=== PATIENT | female | born 1990 | race Caucasian/White ===

== ENCOUNTER 2017-02-13 16:13 | Emergency (ER) | payer OTHER ==
[~2017-02-13] VITALS: Ht 175.3 cm; Wt 114.4 kg
[~2017-02-13 16:13] MED LIST: ATARAX,VISTARIL25 MG PO; FLEXERIL10 MG PO; HYDROCODON-ACE1 EAC7 PO; Imitrex PO; LORTAB 5-325 M1 EACH PO; MACROBID100 MG PO; MILLIPRED DP5 MG PO; MOTRIN800 MG PO; NAPROSYN500 MG PO; NO HOME MEDS; NOHOMEMEDS; NORCO 5/3251 TABLET PO; PERCOCET 5/31 TABLET PO; Prefera-OB Plus DHA PO; SPRINTEC1 EACH PO; ULTRAM50 MG PO; ZANTAC150 MG PO; ZITHROMAX250 MG PO; ZOFRAN4 MG PO; Zantac PO; no home med
[2017-02-13 16:40] LABS: HEMATOCRIT 39.6 % (36.0-46.0); MCHC 33.6 G/DL (30.0-36.0); MCV 92.3 FL (83-99); MEAN PLAT.VOLUME 9.6 uM^3 (9.5-12.4); PLATELET COUNT 243 K/uL (156-360); RBC DIS.WIDTH-CV 12.9 % (11.8-14.6); RBC DIS.WIDTH-SD 43.4 % (39-53); RED BLOOD COUNT 4.29 M/uL (3.80-5.20); WHITE BLOOD COUNT 12.4 K/uL (4.1-10.2)
[2017-02-13 16:49] LABS: CHLORIDE 108 mEq/L (99-109); POTASSIUM 3.8 mEq/L (3.7-5.4); SODIUM 138 mEq/L (136-147)
[2017-02-13 16:51] LABS: GLUCOSE 104 mg/dL (70-99)
[2017-02-13 16:52] LABS: ANION GAP 9 MEQ/L (2-14)
[2017-02-13 16:53] LABS: TOTAL BILIRUBIN 0.5 mg/dL (0.0-1.0)
[2017-02-13 16:55] LABS: ALKALINE PHOSPHATASE 52 IU/L (3-129); GFR ESTIMATE (CALCULATED) > 59 mL/min/
[2017-02-13 16:56] LABS: UREA NITROGEN (BUN) 6 mg/dL (9-23)
[2017-02-13 17:11] LABS: ADD MIUA? YES; BILIRUBIN NEGATIVE; BLOOD NEGATIVE; COLOR YELLOW ((YELLOW)); GLUCOSE (STRIP) NEGATIVE; KETONES NEGATIVE; LEUKOCYTES NEGATIVE; NITRITE NEGATIVE; PROTEIN (STRIP) NEGATIVE; SPECIFIC GRAVITY 1.013 (1.000-1.030); UROBILINOGEN 0.2 MG/DL (0.2-1.0)
[2017-02-13 17:22] LABS: QUANTITATIVE HCG 44363.6 MIU/ML
[2017-02-13 17:25] LABS: BACTERIA RARE /HPF; EPITHELIAL CELLS RARE /HPF; MUCUS TRACE /LPF; RED BLOOD CELLS 0-5 /HPF (0-5); UCUL ADDED? NO; UNCLASSIFIED CRYSTALS 1+ /HPF; WHITE BLOOD CELLS 0-5 /HPF (0-5)
[2017-02-13 19:35] VITALS: BP 131/75
== END 2017-02-13 19:37 | disposition home or self-care (01) ==
LOC: EME 16:13
DX: O43.891 Other placental disorders, first trimester (principal); O20.0 Threatened abortion; O26.891 Other specified pregnancy related conditions, first trimester; R10.2 Pelvic and perineal pain; F17.200 Nicotine dependence, unspecified, uncomplicated; Z3A.11 11 weeks gestation of pregnancy
CPT/HCPCS: 76801; 80053; 81003; 84702; 85027; 99281; 99284

== ENCOUNTER 2017-08-20 01:45 | Inpatient (IN) | payer OTHER ==
[2017-08-20] VITALS (33 sets, daily range): BP systolic 107–137; BP diastolic 58–88
[~2017-08-20] VITALS: Ht 175.3 cm; Wt 118.4 kg
[2017-08-20 03:10] LABS: EOSINOPHIL (%) 1.4 % (0-5); EOSINOPHIL COUNT 0.2 K/uL (0-0.3); HEMATOCRIT 36.8 % (36.0-46.0); IMMATURE GRANULOCYTE COUNT 0.2 K/uL; INSTRUMENT ABS NEUTROPHIL CT 11.2 K/uL; LYMPHOCYTE COUNT 2.9 K/uL (1.0-2.8); MCHC 33.2 G/DL (30.0-36.0); MCV 93.6 FL (83-99); MEAN PLAT.VOLUME 10.1 uM^3 (9.5-12.4); MONOCYTE (%) 6.5 % (3-12); NEUTROPHIL (%) 72.4 % (45-76); NEUTROPHIL COUNT 11.2 K/uL (1.8-6.4); PLATELET COUNT 230 K/uL (156-360); RBC DIS.WIDTH-CV 13.9 % (11.8-14.6); RBC DIS.WIDTH-SD 48.2 % (39-53); RED BLOOD COUNT 3.93 M/uL (3.80-5.20); WHITE BLOOD COUNT 15.5 K/uL (4.1-10.2)
[2017-08-20] MEDS ORDERED: PRENATAL ONE T1 EACH PO (03:20)
[2017-08-20] MEDS ORDERED: RANITIDINE HCL150 M1 PO (03:21)
[2017-08-20] MEDS ORDERED: VENTOLIN HFA18 GM IH (03:21)
[2017-08-20] MEDS ORDERED: TYLENOL EXTRA500 MG PO (03:22)
[2017-08-20 04:03] LABS: THC CANNABINOIDS PRESUMPTIVE POSITIVE (50 ng/mL)
[2017-08-20 04:04] LABS: ADD MEDTOX COMMENT Y; AMPHETAMINE NEGATIVE (500 ng/mL); BARBITURATES NEGATIVE (200 ng/mL); BENZODIAZEPINES NEGATIVE (150 ng/mL); COCAINE NEGATIVE (150 ng/mL); INTERNAL CONTROLS VALID? YES; METHADONE NEGATIVE (200 ng/mL); METHAMPHETAMINE NEGATIVE (500 ng/mL); OPIATES (MORPHINE) NEGATIVE (100 ng/mL); OXYCODONE NEGATIVE (100 ng/mL); PHENCYCLIDINE NEGATIVE (25 ng/mL); PROPOXYPHENE NEGATIVE (300 ng/mL); TRICYCLIC ANTIDEPRESSANTS NEGATIVE (300 ng/mL)
[2017-08-21] VITALS (7 sets, daily range): BP systolic 118–130; BP diastolic 57–73
[2017-08-21] MEDS ORDERED: IBUPROFEN800 MG PO (01:11)
[2017-08-22 07:03] VITALS: BP 124/73
== END 2017-08-22 14:12 | disposition home or self-care (01) | DRG 775 ==
LOC: LDRP-OP 01:45 → 2WEST 01:46 → LDRP-OP 10-02 09:06
PROVIDERS: Midwife
PROC: 10907ZC Drainage of Amniotic Fluid, Therapeutic from Products of Conception, Via Natural or Artificial Opening (ICD-10-PCS; principal; 2017-08-20)
PROC: 3E0R3BZ Introduction of Anesthetic Agent into Spinal Canal, Percutaneous Approach (ICD-10-PCS; principal; 2017-08-20)
PROC: 00HU33Z Insertion of Infusion Device into Spinal Canal, Percutaneous Approach (ICD-10-PCS; principal; 2017-08-20)
PROC: 10E0XZZ Delivery of Products of Conception, External Approach (ICD-10-PCS; 2017-08-21)
DX: O42.02 Full-term premature rupture of membranes, onset of labor within 24 hours of rupture (principal); O99.824 Streptococcus B carrier state complicating childbirth; O99.323 Drug use complicating pregnancy, third trimester; F12.90 Cannabis use, unspecified, uncomplicated; O99.214 Obesity complicating childbirth; E66.01 Morbid (severe) obesity due to excess calories; Z68.42 Body mass index [BMI] 45.0-49.9, adult; Z3A.38 38 weeks gestation of pregnancy; Z37.0 Single live birth; O99.52 Diseases of the respiratory system complicating childbirth; J45.909 Unspecified asthma, uncomplicated; O99.334 Smoking (tobacco) complicating childbirth; F17.200 Nicotine dependence, unspecified, uncomplicated
CPT/HCPCS: 84999; 85025; C1755; G0378; J3010; J3370; J7120